=== PATIENT | female | born 2005 | race Caucasian/White ===

== ENCOUNTER 2024-03-23 15:25 | Emergency (ER) | payer SELFPAY ==
[2024-03-23 15:34] VITALS: BP 99/63; PULSE 67; RESP 18; TEMP 36.6; O2SAT 100
== END 2024-03-23 17:02 | disposition left against medical advice (07) ==
LOC: ANHED 16:59
DX: N93.9 Abnormal uterine and vaginal bleeding, unspecified (principal)
CPT/HCPCS: 99199